=== PATIENT | female | born 1990 | race African-American/Black ===

== ENCOUNTER 2018-07-28 14:05 | Emergency (ER) | payer MEDICAID ==
[~2018-07-28] VITALS: Ht 167.6 cm; Wt 55.0 kg
[2018-07-28] MEDS: IBUPROFEN 600MG TABLET PO ONE (15:21)
[2018-07-28 16:25] VITALS: BP 123/60
== END 2018-07-28 16:34 | disposition home or self-care (01) ==
LOC: ER 14:05
DX: S40.011A Contusion of right shoulder, initial encounter (principal); E05.90 Thyrotoxicosis, unspecified without thyrotoxic crisis or storm; X50.9XXA Other and unspecified overexertion or strenuous movements or postures, initial encounter; Y93.89 Activity, other specified; Y92.89 Other specified places as the place of occurrence of the external cause; Y99.8 Other external cause status
CPT/HCPCS: 73030; 81025; 99283

== ENCOUNTER 2018-09-04 08:40 | Emergency (ER) | payer MEDICAID ==
[~2018-09-04] VITALS: Ht 165.1 cm; Wt 60.0 kg
[2018-09-04] MEDS ORDERED: ONDANSETRON HCL 4MG/2ML INJ IV STA (09:42)
[2018-09-04] MEDS ORDERED: SODIUM CHLORIDE 0.9% 1,000 ML IV ONE (09:42)
[2018-09-04] MEDS ORDERED: FAMOTIDINE 20MG/2ML VIAL IV STA (09:42)
[2018-09-04 10:17] LABS: BASOPHILS % 0.6 % (0.0-2.0); EOSINOPHILS % 2.2 % (0.0-5.0); HEMATOCRIT. 36.2 % (36.0-48.0); LYMPHOCYTES % 44.4 % (20.0-50.0); MEAN CORPUSCULAR HEMOGLOBIN 24.8 pg (28.0-32.0); MEAN CORPUSCULAR VOLUME 75.1 fL (81.0-99.0); MEAN PLATELET VOLUME 9.3 fl (7.4-10.4); MONOCYTES % 8.9 % (2.0-8.0); NEUTROPHILS % 43.9 % (40.0-76.0); PLATELET 280 x1000/uL (130-400); RED BLOOD CELL COUNT 4.82 mill/uL (4.2-5.4); RED CELL DISTRIBUTION WIDTH 14.1 % (11.6-14.6)
[2018-09-04 10:18] LABS: CHLORIDE 108 mEq/L (98-107)
[2018-09-04 10:25] LABS: PROTHROMBIN TIME 10.5 sec (9.6-11.0)
[2018-09-04 10:26] LABS: HCG SCREEN NEGATIVE
[2018-09-04 10:37] LABS: CLARITY URINE TURBID (CLEAR); KETONES URINE TRACE (NEGATIVE); LEUKOCYTE ESTERASE URINE 3+ (NEGATIVE); NITRITE URINE NEGATIVE (NEGATIVE); OCCULT BLOOD URINE 3+ (NEGATIVE); PH URINE 5.5 (4.5-8.0); PROTEIN URINE 2+ (NEGATIVE); SPECIFIC GRAVITY URINE 1.026 (1.005-1.030)
[2018-09-04 10:38] LABS: COLOR URINE YELLOW (YELLOW)
[2018-09-04 12:34] VITALS: BP 133/69
== END 2018-09-04 12:48 | disposition home or self-care (01) ==
LOC: ER 08:40
DX: N39.0 Urinary tract infection, site not specified (principal); E05.90 Thyrotoxicosis, unspecified without thyrotoxic crisis or storm
CPT/HCPCS: 36415; 80053; 81003; 83690; 84703; 85025; 85610; 87086; 96374; 96375; 99284; J2405; J3490; J7030

== ENCOUNTER 2018-12-23 00:35 | Emergency (ER) | payer MEDICAID ==
[~2018-12-23] VITALS: Ht 160 cm; Wt 56.0 kg
[2018-12-23] MEDS ORDERED: SODIUM CHLORIDE 0.9% 1,000 ML IV ONE (01:51)
[2018-12-23] MEDS ORDERED: ONDANSETRON HCL 4MG/2ML INJ IV STA (01:51)
[2018-12-23 02:09] LABS: BASOPHILS % 0.5 % (0.0-2.0); EOSINOPHILS % 1.3 % (0.0-5.0); HEMATOCRIT. 37.7 % (36.0-48.0); HEMOGLOBIN. 12.1 g/dL (12.0-16.0); LYMPHOCYTES % 7.2 % (20.0-50.0); MEAN CORPUSCULAR HEMOGLOBIN 23.2 pg (28.0-32.0); MEAN CORPUSCULAR VOLUME 72.4 fL (81.0-99.0); MEAN PLATELET VOLUME 9.3 fl (7.4-10.4); MONOCYTES % 5.5 % (2.0-8.0); NEUTROPHILS % 85.5 % (40.0-76.0); PLATELET 259 x1000/uL (130-400); RED BLOOD CELL COUNT 5.21 mill/uL (4.2-5.4); RED CELL DISTRIBUTION WIDTH 14.8 % (11.6-14.6)
[2018-12-23 02:15] LABS: CHLORIDE 109 mEq/L (98-107)
[2018-12-23] MEDS ORDERED: MORPHINE SULFATE 4 MG/ML CPJ (NOT FOR IM USE) IV ONE (02:15)
[2018-12-23 02:16] LABS: PROTHROMBIN TIME 10.3 sec (9.6-11.0)
[2018-12-23 04:11] VITALS: BP 124/70
== END 2018-12-23 04:22 | disposition home or self-care (01) ==
LOC: ER 00:35
DX: T62.91XA Toxic effect of unspecified noxious substance eaten as food, accidental (unintentional), initial encounter (principal); K52.1 Toxic gastroenteritis and colitis; E03.9 Hypothyroidism, unspecified; Y92.89 Other specified places as the place of occurrence of the external cause
CPT/HCPCS: 36415; 80053; 81025; 83690; 84484; 85025; 85610; 96361; 96374; 96375; 99283; J2270; J2405; J7030; Z7610

== ENCOUNTER 2019-02-12 13:12 | Emergency (ER) | payer MEDICAID ==
[~2019-02-12] VITALS: Ht 165.1 cm; Wt 60.0 kg
[2019-02-12] MEDS ORDERED: DICYCLOMINE 10 MG/5 ML ORAL SYR PO STA (13:44)
[2019-02-12] MEDS ORDERED: VISCOUS LIDOCAINE 2% 15 ML UDC PO STA (13:44)
[2019-02-12] MEDS ORDERED: ONDANSETRON HCL 4MG/2ML INJ IV STA (13:44)
[2019-02-12] MEDS ORDERED: MAGNESIUM/ALUMINUM HYDROXIDE/SIMETHICONE 30ML UDC PO STA (13:44)
[2019-02-12] MEDS ORDERED: SODIUM CHLORIDE 0.9% 1,000 ML IV ONE (13:44)
[2019-02-12] MEDS ORDERED: KETOROLAC 30MG/ML VIAL IV STA (13:44)
[2019-02-12] MEDS ORDERED: LOPERAMIDE HCL 2MG CAPSULE PO ONE (13:45)
[2019-02-12] MEDS ORDERED: FAMOTIDINE 20MG/2ML VIAL IV ONE (13:45)
[2019-02-12 15:40] VITALS: BP 111/53
== END 2019-02-12 15:51 | disposition home or self-care (01) ==
LOC: ER 13:12
DX: R11.2 Nausea with vomiting, unspecified (principal); R19.7 Diarrhea, unspecified; E05.90 Thyrotoxicosis, unspecified without thyrotoxic crisis or storm
CPT/HCPCS: 81025; 96361; 96374; 96375; 99284; J1885; J2405; J3490; J7030

== ENCOUNTER 2019-03-19 08:03 | Emergency (ER) | payer MEDICAID ==
[~2019-03-19] VITALS: Ht 162.6 cm; Wt 59.0 kg
[2019-03-19] MEDS ORDERED: SODIUM CHLORIDE 0.9% 1,000 ML IV ONE (09:10)
[2019-03-19] MEDS ORDERED: ONDANSETRON HCL 4MG/2ML INJ IV ONE (09:15)
[2019-03-19 09:33] LABS: HEMATOCRIT. 32.7 % (36.0-48.0); HEMOGLOBIN. 10.5 g/dL (12.0-16.0); MEAN CORPUSCULAR HEMOGLOBIN 23.2 pg (28.0-32.0); MEAN CORPUSCULAR VOLUME 72.2 fL (81.0-99.0); MEAN PLATELET VOLUME 9.7 fl (7.4-10.4); PLATELET 225 x1000/uL (130-400); RED BLOOD CELL COUNT 4.52 mill/uL (4.2-5.4); RED CELL DISTRIBUTION WIDTH 15.4 % (11.6-14.6)
[2019-03-19 09:40] LABS: CHLORIDE 103 mEq/L (98-107)
[2019-03-19 09:45] LABS: CLARITY URINE TURBID (CLEAR); COLOR URINE YELLOW (YELLOW); KETONES URINE TRACE (NEGATIVE); LEUKOCYTE ESTERASE URINE 1+ (NEGATIVE); NITRITE URINE NEGATIVE (NEGATIVE); OCCULT BLOOD URINE NEGATIVE (NEGATIVE); PH URINE 5.5 (4.5-8.0); PROTEIN URINE TRACE (NEGATIVE); SPECIFIC GRAVITY URINE 1.018 (1.005-1.030)
[2019-03-19 10:03] LABS: B-HCG QUANTITATIVE 47563 mIU/mL (<3)
[2019-03-19 10:18] LABS: PLATELET ESTIMATE NORMAL
[2019-03-19] MEDS ORDERED: NITROFURANTOIN 100MG M/M CAPSULE PO ONE (10:30)
[2019-03-19] MEDS ORDERED: POTASSIUM CHLORIDE 20MEQ TABLET SR PO ONE (10:45)
[2019-03-19 11:02] VITALS: BP 136/68
== END 2019-03-19 12:25 | disposition home or self-care (01) ==
LOC: ER 08:03
DX: O20.0 Threatened abortion (principal); O23.40 Unspecified infection of urinary tract in pregnancy, unspecified trimester; E87.6 Hypokalemia; R10.9 Unspecified abdominal pain; D64.9 Anemia, unspecified; E05.90 Thyrotoxicosis, unspecified without thyrotoxic crisis or storm; O26.891 Other specified pregnancy related conditions, first trimester; Z3A.01 Less than 8 weeks gestation of pregnancy
CPT/HCPCS: 36415; 76801; 76817; 80053; 81003; 81025; 83690; 84702; 85025; 86850; 86900; 86901; 96374; 99284; J2405; J7030

== ENCOUNTER 2019-03-26 10:08 | Emergency (ER) | payer MEDICAID ==
[~2019-03-26] VITALS: Ht 165.1 cm; Wt 60.0 kg
[2019-03-26] MEDS ORDERED: SODIUM CHLORIDE 0.9% 1,000 ML IV ONE ×3 (11:28→14:00)
[2019-03-26] MEDS ORDERED: PROCHLORPERAZINE 10MG/2ML VIAL IM ONE (11:30)
[2019-03-26 12:10] LABS: BASOPHILS % 0.5 % (0.0-2.0); EOSINOPHILS % 0.2 % (0.0-5.0); HEMATOCRIT. 34.3 % (36.0-48.0); HEMOGLOBIN. 10.8 g/dL (12.0-16.0); LYMPHOCYTES % 33.9 % (20.0-50.0); MEAN CORPUSCULAR HEMOGLOBIN 22.8 pg (28.0-32.0); MEAN CORPUSCULAR VOLUME 72.1 fL (81.0-99.0); MEAN PLATELET VOLUME 9.9 fl (7.4-10.4); MONOCYTES % 6.8 % (2.0-8.0); NEUTROPHILS % 58.6 % (40.0-76.0); PLATELET 203 x1000/uL (130-400); RED BLOOD CELL COUNT 4.75 mill/uL (4.2-5.4); RED CELL DISTRIBUTION WIDTH 14.7 % (11.6-14.6)
[2019-03-26 12:41] LABS: CHLORIDE 106 mEq/L (98-107)
[2019-03-26 14:55] LABS: CLARITY URINE CLOUDY (CLEAR); COLOR URINE YELLOW (YELLOW); KETONES URINE 4+ (NEGATIVE); LEUKOCYTE ESTERASE URINE NEGATIVE (NEGATIVE); NITRITE URINE NEGATIVE (NEGATIVE); OCCULT BLOOD URINE NEGATIVE (NEGATIVE); PROTEIN URINE NEGATIVE (NEGATIVE); SPECIFIC GRAVITY URINE 1.018 (1.005-1.030); UROBILINOGEN URINE 0.2 E.U./dL (0.2-1.0)
[2019-03-26] MEDS ORDERED: PROPRANOLOL HCL 20MG TABLET PO ONE ×2 (18:30)
[2019-03-26 22:20] VITALS: BP 115/55
== END 2019-03-26 22:21 | disposition short-term general hospital (02) ==
LOC: ER 10:24 → CANBEDREQ 03-27 00:24
DX: O26.91 Pregnancy related conditions, unspecified, first trimester (principal); E05.90 Thyrotoxicosis, unspecified without thyrotoxic crisis or storm; R11.2 Nausea with vomiting, unspecified; Z3A.01 Less than 8 weeks gestation of pregnancy
CPT/HCPCS: 36415; 76801; 76817; 80053; 81003; 84439; 84443; 84484; 85025; 93005; 96360; 96361; 96372; 99285; J0780; J7030